=== PATIENT | female | born 1980 | race Hispanic/Latino ===

== ENCOUNTER 2020-02-29 09:31 | Emergency (ER) | payer SELFPAY ==
[2020-02-29 09:59] VITALS: BP 130/92; PULSE 76; RESP 20; TEMP 36.3; O2SAT 99
--- NOTE | 2020-02-29 10:32 | ED.GENADULT ---
HPI - General Adult General Chief complaint: Extremity Problem,Nontraumatic Stated complaint: Sciatic nerve Time Seen by Provider: 02/29/20 10:20 Source: patient, family (daughter, whom patient requested to translate and declined a professional park maintenance technician) and RN notes reviewed Mode of arrival: ambulatory Limitations: language barrier (Amharic speaking) History of Present Illness HPI narrative: 39-year-old female presents with daughter (whom she request to translate for her) complaints of left buttock pain, radiates down left leg for the past 7 days. Haley reports standing for periods of time at work in which has caused pain to increase over the past 48 hours. Ibuprofen, last this morning approximately 02:00 without relief. History of Sciatic nerve pain with physical therapy. Denies new injuries or falls. Denies new numbness or tingling. Denies fever or chills. No upper extremity pain or weakness. Exacerbating factors consist of prolong standing and bending. Denies nausea, vomiting, or abdominal pain. Denies problems with urinating or having a bowel movement, LBM 02/28/20 per patient and normal. LMP 1 week ago. No flank pain or hematuria or dysuria. Remains active. The patient and daughter reports they have not been diagnosed with COVID-19. The patient and daughter reports they are not waiting for the results of a COVID-19 lab test. The patient and daughter reports they do not have chills, fatigue, or myalgia. The patient and daughter reports they do not have a new or worsening cough or shortness of breath. Denies chest pain. The patient and daughter reports they do not have any rhinorrhea, congestion, loss of taste, sore throat, or diarrhea. Denies recent traveling. Denies concerns for COVID-19 or exposures been home with limited outdoor exposure except for essential household needs, work, and return home. At this time, patient is not suspected of having COVID-19. Some parts of this dictation were generated by voice recognition software and may contain typographical and/or grammatical inaccuracies. Related Data Allergies Allergy/AdvReac Type Severity Reaction Status Date / Time No Known Allergies Allergy Verified 02/29/20 09:54 Review of Systems Review of Systems: Narrative: CONSTITUTIONAL: Denies fever, chills, sweats. EYES: Denies visual changes, redness, discharge. ENT: Denies rhinorrhea, congestion, sore throat, otalgia. CARDIOVASCULAR: Denies chest pain, palpitations, edema. RESPIRATORY: Denies dyspnea, wheezing, cough. GASTROINTESTINAL: Denies abdominal pain, nausea, vomiting, diarrhea. GENITOURINARY: Denies dysuria, hematuria, abnormal discharge. SKIN: Denies rash or itching. MUSCULOSKELETAL: Complains of left buttock pain, radiates down left leg. Denies joint pain or myalgia. NEUROLOGIC: Denies numbness or focal weakness. PSYCHIATRIC: Denies anxiety or depression. All systems reviewed & are unremarkable except as noted in HPI and below [facility] Past Medical History Medical History (Updated 03/03/20 @ 13:40 by MYKE [place]) Diabetes History of gastroesophageal reflux (GERD) Surgical History Surgical History (Updated 02/29/20 @ 11:32 by MYKE [place]) No significant past surgical history Family History Family History (Updated 02/29/20 @ 10:42 by MYKE [place]) Father Alive and well Mother Heart disease Hypertension Diabetes mellitus Social History Social History (Updated 02/29/20 @ 10:42 by MYKE [place]) Smoking status: Never smoker Tobacco type: cigarettes Second hand tobacco smoke exposure: Yes Alcohol intake: current Substance use: never Living arrangements: with family Occupation/Education: unemployed Gender identity (if verbalized by the patient): Female Sexual Orientation (if Verbalized by the Patient): Straight or Heterosexual Comments At time of signature, agree with nurse past medical, surgical, socia
[2020-02-29] MEDS: KETOROLAC (*BKC) 60 MG/2 ML VIAL IM (10:41)
== END 2020-02-29 11:15 | disposition home or self-care (01) ==
PROVIDERS: Emergency Provider Nurse Practitioner Family
DX: M54.42 Lumbago with sciatica, left side (principal); E11.9 Type 2 diabetes mellitus without complications
CPT/HCPCS: 96372; 99203; G0463; J1885